=== PATIENT | female | born 1950 | race Caucasian/White ===

== ENCOUNTER → 2023-11-21 13:50 | Outpatient (REF) | payer MEDICARE, BC, SELFPAY | LOC: WDC 13:50 | PROVIDERS: ATTENDING PHYSICIAN Obstetrics & Gynecology Gynecology; FAMILY PHYSICIAN Student in an Organized Health Care Education/Training Program | DX: Z12.31 Encounter for screening mammogram for malignant neoplasm of breast (principal) | CPT/HCPCS: 77063; 77067 ==

== ENCOUNTER → 2024-04-29 08:21 | Outpatient (REF) | payer MEDICARE, BC, SELFPAY | LOC: MRI 3T 08:21 | PROVIDERS: ATTENDING PHYSICIAN Orthopaedic Surgery Hand Surgery; FAMILY PHYSICIAN Student in an Organized Health Care Education/Training Program | DX: M75.52 Bursitis of left shoulder (principal); M13.812 Other specified arthritis, left shoulder | CPT/HCPCS: 73221 ==

== ENCOUNTER → 2024-09-20 15:48 | Outpatient (REF) | payer MEDICARE, BC, SELFPAY | LOC: RCS 15:48 | PROVIDERS: ATTENDING PHYSICIAN Internal Medicine Cardiovascular Disease; FAMILY PHYSICIAN Student in an Organized Health Care Education/Training Program | DX: R00.2 Palpitations (principal) | CPT/HCPCS: 93306 ==

== ENCOUNTER → 2024-09-21 10:35 | Outpatient (REF) | payer MEDICARE, BC, SELFPAY | LOC: RCS 10:35 | PROVIDERS: ATTENDING PHYSICIAN Internal Medicine Cardiovascular Disease; FAMILY PHYSICIAN Student in an Organized Health Care Education/Training Program | DX: R06.09 Other forms of dyspnea (principal) | CPT/HCPCS: 93017 ==

== ENCOUNTER → 2024-10-12 12:23 | Outpatient (REF) | payer MEDICARE, BC, SELFPAY | LOC: RCS 12:23 | PROVIDERS: ATTENDING PHYSICIAN Internal Medicine Cardiovascular Disease; FAMILY PHYSICIAN Student in an Organized Health Care Education/Training Program | DX: R06.09 Other forms of dyspnea (principal); R42 Dizziness and giddiness | CPT/HCPCS: 93017; 93350 ==

== ENCOUNTER → 2024-12-10 06:41 | Outpatient (REF) | payer MEDICARE, BC, SELFPAY | LOC: PAVMRI 06:41 | PROVIDERS: ATTENDING PHYSICIAN Student in an Organized Health Care Education/Training Program | DX: M54.50 Low back pain, unspecified (principal); R20.2 Paresthesia of skin | CPT/HCPCS: 72148 ==

== ENCOUNTER → 2024-12-11 10:00 | Outpatient (REF) | payer MEDICARE, BC, SELFPAY | LOC: WDC 10:00 | PROVIDERS: ATTENDING PHYSICIAN Obstetrics & Gynecology Gynecology; FAMILY PHYSICIAN Student in an Organized Health Care Education/Training Program | DX: Z12.31 Encounter for screening mammogram for malignant neoplasm of breast (principal) | CPT/HCPCS: 77063; 77067 ==